=== PATIENT | male | born 1995 | race Caucasian/White ===

== ENCOUNTER 2021-12-24 09:47 | Emergency (ER) | payer OTHER ==
[~2021-12-24] VITALS: Ht 177.8 cm; Wt 77.1 kg
[2021-12-24] MEDS ORDERED: HYDROCODON-ACE1 EA10 PO (10:51)
== END 2021-12-24 10:59 | disposition home or self-care (01) ==
LOC: ED 09:47
DX: S62.614A Displaced fracture of proximal phalanx of right ring finger, initial encounter for closed fracture (principal); S20.212A Contusion of left front wall of thorax, initial encounter; W22.8XXA Striking against or struck by other objects, initial encounter
CPT/HCPCS: 71101; 73140; 99283-25

== ENCOUNTER 2021-12-30 06:55 | Day surgery (SDC) | payer OTHER ==
[~2021-12-30] VITALS: Ht 177.8 cm; Wt 90.9 kg
[~2021-12-30 06:55] MED LIST: HYDROCODON-ACE1 EA10 PO
--- NOTE | 2021-12-30 09:40 | NUR ---
PT ALERT, ORIENTED AND A MAN OF FEW WORDS BUT POLITE AND TO THE POINT. ALL QUESTIONS ASKED ANSWERED. PT SAID HE HAD A RIDE ARRANGED.GAVE BLESSING AND WILL FOLLOW NEEDED
[2021-12-30] MEDS ORDERED: HYDROCODON-ACE1 EA10 PO (10:19)
--- NOTE | 2021-12-30 10:32 | NUR ---
12/30/21 1032 Jasper,Edel 1016 PT ARRIVED TO PACU ON 6L VIA MASK, ORAL AIRWAY IN PLACE. VSS. 1027 PT WAKES TO VERBAL STIMULI AND ORAL AIRWAY REMOVED. PT DENIES PAIN AND IS REORIENTED TO PACU. O2 REMOVED.
--- NOTE | 2021-12-30 12:02 | NUR ---
1150 PATIENT IS ALERT AND ORIENTED. BREATHING EQUAL AND UNLABORED. OXYGEN SATURATIONS AT 95% ON ROOM AIR. PATIENT DENIES PAIN OR NAUSEATED. PATIENT ICE IN PLACE. IMMOBILIZER ON. PATIENT HAS MET DISCHARGE CRITERIA. PATIENT GIVEN DISCHARGE INSTRUCTIONS. NO QUESTIONS AT THIS TIME. PATIENT DRESSED SELF AND TOLERATED IT WELL. IV D/C'D WNL. PATIENT WHEELED OUT OF FACILITY TO FRIEND. NO FUTHER NEEDS.
--- NOTE | 2022-01-02 07:04 | OR ---
[facility] [address] [place], [place] [address] Signed DATE OF OPERATION: 12/30/2021 SURGEON: Holly Lawrence MD PREOPERATIVE DIAGNOSIS: Right ring, P1 fracture displaced, comminuted. POSTOPERATIVE DIAGNOSIS: Right ring, P1 fracture displaced, comminuted. PROCEDURE PERFORMED: Closed reduction percutaneous pinning right ring P1. MILITARY SCIENCE INSTRUCTOR: None. ANESTHESIA: General. BLOOD LOSS: Minimal. IMPLANTS: Three 1.25 mm K-wires. BRIEF HISTORY: Olesya a 26-year-old gentleman who was competing in the [employer] [place]coming at the appening when he got his finger caught and fractured. It was displaced in three major fragments. Risks and benefits of operative treatment were discussed with him and he elected to proceed. DESCRIPTION OF PROCEDURE: Once consent was obtained, he was taken to the operating room. After adequate anesthesia, his arm was prepped and draped in a standard sterile fashion. Closed reduction was obtained and checked using the image intensifier. The sagittal alignment was good. He was off just a touch on the coronal. The first K-wire was passed across the condyles distally secondary to an intercondylar split. The 2nd was passed obliquely across the fracture engaging the main body of the proximal fragment. The 3rd was placed from the other side to the distal ulnar aspect. Good reduction was obtained. The fracture was stable. The pins were then cut and bent and dressed with sterile Electronically Signed By: HOLLY LAWRENCE MD 01/02/22 0704 PATIENT NAME: OLESYA PRICE OPERATIVE REPORT DATE OF : [birth year] REPORT #: [id number] PHYSICIAN: HOLLY LAWRENCE MD PCP: ERICK MATTHEW MD REPORT IS CONFIDENTIAL AND NOT TO BE RELEASED WITHOUT AUTHORIZATION [address] [place], [place] [address] Signed gauze and an ulnar gutter splint. He tolerated the procedure well. All sponge, needle, and instrument counts were correct. Holly Lawrence MD BA/DIANAL /[id number] Copies: ~ Electronically Signed By: HOLLY LAWRENCE MD 01/02/22 0704 PATIENT NAME: OLESYA PRICE OPERATIVE REPORT DATE OF : [birth year] REPORT #: [id number] PHYSICIAN: HOLLY LAWRENCE MD PCP: ERICK MATTHEW MD REPORT IS CONFIDENTIAL AND NOT TO BE RELEASED WITHOUT AUTHORIZATION
== END 2021-12-30 11:50 | disposition home or self-care (01) ==
LOC: DS 06:55
PROVIDERS: ATTEND Specialist
PROC: 0PST34Z Reposition Right Finger Phalanx with Internal Fixation Device, Percutaneous Approach (ICD-10-PCS; principal; 2021-12-30 08:45)
DX: S62.614A Displaced fracture of proximal phalanx of right ring finger, initial encounter for closed fracture (principal); I49.3 Ventricular premature depolarization; E11.9 Type 2 diabetes mellitus without complications; G89.18 Other acute postprocedural pain; W23.1XXA Caught, crushed, jammed, or pinched between stationary objects, initial encounter
CPT/HCPCS: 73140; J0690; J1100; J1885; J2001; J2250; J2405; J2704; J2795; J3010; J7121